=== PATIENT | male | born 1985 | race Caucasian/White ===

== ENCOUNTER → 2017-12-25 | Emergency (ER) | payer OTHER ==
[~2017-12-25] VITALS: Ht 152.4 cm; Wt 43.1 kg
[~2017-12-25] MED LIST: PREVACID30 MG PO
== END | disposition home or self-care (01) ==
LOC: ER 21:03
DX: T63.441A Toxic effect of venom of bees, accidental (unintentional), initial encounter (principal); Y92.89 Other specified places as the place of occurrence of the external cause

== ENCOUNTER 2019-06-07 07:43 | Outpatient (CLI) | payer OTHER | END 2019-06-07 08:36 | disposition home or self-care (01) | LOC: LAB 07:43 | DX: E03.8 Other specified hypothyroidism (principal); E11.9 Type 2 diabetes mellitus without complications; I10 Essential (primary) hypertension; E78.2 Mixed hyperlipidemia; M81.0 Age-related osteoporosis without current pathological fracture ==

== ENCOUNTER 2019-07-23 12:42 | Outpatient (CLI) | payer OTHER | END 2019-07-23 12:44 | disposition home or self-care (01) | LOC: RAD 12:42 | DX: M46.47 Discitis, unspecified, lumbosacral region (principal); M19.90 Unspecified osteoarthritis, unspecified site ==

== ENCOUNTER 2019-07-29 11:02 | Outpatient (CLI) | payer OTHER | END 2019-07-29 12:00 | disposition home or self-care (01) | LOC: NUCLEAR 11:02 | DX: I10 Essential (primary) hypertension (principal) ==

== ENCOUNTER 2019-09-24 10:37 | Emergency (ER) | payer OTHER ==
[~2019-09-24] VITALS: Ht 139.7 cm; Wt 44.5 kg
== END 2019-09-24 13:00 | disposition home or self-care (01) ==
LOC: ER 10:37
DX: S92.321A Displaced fracture of second metatarsal bone, right foot, initial encounter for closed fracture (principal); S92.331A Displaced fracture of third metatarsal bone, right foot, initial encounter for closed fracture; X58.XXXA Exposure to other specified factors, initial encounter; Y93.89 Activity, other specified; Y92.89 Other specified places as the place of occurrence of the external cause; Y99.8 Other external cause status

== ENCOUNTER 2021-03-10 09:06 | Outpatient (CLI) | payer OTHER | END 2021-03-10 13:44 | disposition home or self-care (01) | LOC: LAB 09:06 | PROVIDERS: ATTEND Internal Medicine Cardiovascular Disease | DX: I10 Essential (primary) hypertension (principal); E11.9 Type 2 diabetes mellitus without complications; E03.9 Hypothyroidism, unspecified; E55.9 Vitamin D deficiency, unspecified ==

== ENCOUNTER 2022-03-12 22:22 | Emergency (ER) | payer OTHER ==
[~2022-03-12] VITALS: Ht 154.9 cm; Wt 46.3 kg
[2022-03-13] MEDS ORDERED: ZITHROMAX500 MG PO (01:41)
== END 2022-03-13 01:51 | disposition home or self-care (01) ==
LOC: ER 22:22
DX: R50.9 Fever, unspecified (principal); Z20.828 Contact with and (suspected) exposure to other viral communicable diseases

== ENCOUNTER 2024-11-04 13:10 | Emergency (ER) | payer OTHER ==
[~2024-11-04] VITALS: Ht 134.6 cm; Wt 46.7 kg
[~2024-11-04 13:10] MED LIST changes: +ZITHROMAX500 MG PO
[2024-11-04] MEDS ORDERED: FAMOTIDINE/PF 20 MG/2 ML VIAL IV ONE (15:30)
[2024-11-04] MEDS ORDERED: GUAIFENESIN/DEXTROMETHORPHAN 100MG/10ML BLIST.PACK PO ONE ×2 (15:30→15:41)
[2024-11-04] MEDS ORDERED: FAMOTIDINE/PF 20 MG/2 ML VIAL ONE (15:41)
[2024-11-04 16:44] LABS: HEMATOCRIT 46.3 % (39.0-48.0); HEMOGLOBIN 15.6 g/dL (13-16.00); MEAN CELL VOLUME 87.5 fL (80.0-100.00); MEAN CORPUSCULAR HEMOGLOBIN 29.5 pg (27.00-32.0); MEAN CORPUSCULAR HGB CONC 33.7 g/dl (32.0-36.0); PLATELET COUNT 242 K/uL (150-450); RED BLOOD COUNT 5.29 M/uL (4.00-6.00); RED CELL DISTRIBUTION WIDTH 14.1 % (11.5-14.5)
[2024-11-04 17:09] LABS: ALBUMIN 3.9 gm/dL (3.4-5.0); BILIRUBIN TOTAL 0.48 mg/dL (0.3-1.2); CALCIUM 9.6 mg/dL (8.5-10.1); CREATININE SERUM 0.98 mg/dL (0.70-1.30); GFR 86.06; GLOBULINA 4.5 G/DL (2.4-3.5); POTASSIUM 4.51 mEq/L (3.5-5.1); TOTAL PROTEIN 8.4 gm/dL (6.4-8.2)
[2024-11-04] MEDS ORDERED: TUSSIN DM LIQU118 ML PO (18:04)
[2024-11-04] MEDS ORDERED: FAMOTIDINE40 MG/5 ML PO (18:04)
== END 2024-11-04 18:26 ==
LOC: ER 13:13
PROVIDERS: Preventive Medicine Public Health & General Preventive Medicine
DX: R53.81 Other malaise (principal); R07.89 Other chest pain; Z20.822 Contact with and (suspected) exposure to COVID-19; Z88.5 Allergy status to narcotic agent